=== PATIENT | male | born 1985 ===

== ENCOUNTER → 2016-09-13 | Outpatient (CLI) | payer OTHER | END | disposition home or self-care (01) | LOC: LAB 16:42 | PROVIDERS: ATTEND Nurse Practitioner | DX: L23.9 Allergic contact dermatitis, unspecified cause (principal); R21 Rash and other nonspecific skin eruption; Y37.90XA Military operations, unspecified, initial encounter; Y92.9 Unspecified place or not applicable; Y99.1 Military activity | CPT/HCPCS: 87205 ==